=== PATIENT | female | born 1950 | race Caucasian/White ===

== ENCOUNTER 2016-10-11 14:12 | Emergency (ER) | payer MEDICARE, MEDICAID ==
[~2016-10-11] VITALS: Ht 154.9 cm; Wt 71.2 kg
[2016-10-11] MEDS ORDERED: DULA0.75 SQ (15:05)
[2016-10-11] MEDS ORDERED: SPIR25TA4 PO (15:05)
[2016-10-11] MEDS ORDERED: ROSU10TA25 PO (15:05)
[2016-10-11] MEDS ORDERED: OLME1TAB3 PO (15:05)
[2016-10-11] MEDS ORDERED: DICL100G3 TP (15:05)
[2016-10-11] MEDS ORDERED: ASPI81TA31 PO (15:05)
[2016-10-11] MEDS ORDERED: NALT50TA PO ×2 (15:05)
[2016-10-11] MEDS ORDERED: FLUT1BLS IH (15:05)
[2016-10-11] MEDS ORDERED: SITA1TAB2 PO (15:05)
[2016-10-11] MEDS ORDERED: LEVO50TA8 PO (15:05)
[2016-10-11] MEDS ORDERED: ICOS1CAP PO (15:05)
[2016-10-11] MEDS ORDERED: KETOROLAC TROMETHAMINE 15 MG INJ IV ONE (15:15)
[2016-10-11] MEDS ORDERED: IV NORMAL SALINE 1000 ML BAG IV ONE (15:15)
[2016-10-11] MEDS ORDERED: KETOROLAC TROMETHAMINE 15 MG INJ ONE (15:26)
[2016-10-11 15:29] LABS: BASOPHILS % (AUTO) 0.5 % (0.0-2.0); EOSINOPHILS # (AUTO) 0.1 K/uL (0.0-0.7); EOSINOPHILS % (AUTO) 0.9 % (0.0-7.0); LYMPHOCYTES # (AUTO) 2.1 K/uL (20.0-40.0); LYMPHOCYTES % (AUTO) 23.6 % (20.5-51.5); MEAN CORPUSCULAR HEMOGLOBIN 29.8 UUG (27.0-31.0); MEAN CORPUSCULAR HGB CONC 35 g/dL (32.0-37.0); MEAN CORPUSCULAR VOLUME 85.4 FL (81.0-99.0); MONOCYTES # (AUTO) 0.5 K/uL (2.0-10.0); MONOCYTES % (AUTO) 5.7 % (0.0-11.0); NEUTROPHILS # (AUTO) 6.1 K/uL (1.8-8.9); NEUTROPHILS % (AUTO) 69.3 % (38.5-71.5); PLATELET COUNT (AUTO) 295 K/UL (150-450); RED BLOOD CELL COUNT(AUTO) 4.69 MIL/UL (4.2-5.4); RED CELL DISTRIBUTION WIDTH 12.4 % (11.5-14.5); WHITE BLOOD COUNT (AUTO) 8.8 K/UL (4.0-11.2)
[2016-10-11 15:33] LABS: *BILIRUBIN,URIN NEGATIVE (NEGATIVE); *BLOOD, URINE Trace-intact (NEGATIVE); *COLOR,URINE YELLOW (YELLOW); *KETONES,URINE NEGATIVE (NEGATIVE); *PROTEIN,URINE NEGATIVE (NEGATIVE); *UROBILINOGEN,URINE 0.2 E.U./dl (NORMAL); LEUKOCYTE ESTERASE ,URINE NEGATIVE (NEGATIVE); NITRITE, URINE NEGATIVE (NEGATIVE); UGLUCOSE NEGATIVE (NEGATIVE)
[2016-10-11 15:41] LABS: CREATININE 0.9 mg/dL (0.6-1.3); POTASSIUM 3.8 mmol/L (3.5-5.1)
[2016-10-11 15:46] LABS: *CLARITY,URINE SLIGHTLY HAZY (CLEAR); BACTERIA,URINE FEW /HPF (NONE SEEN); SQUAMOUS EPITHELIAL CELL,UR MODERATE /HPF (NONE SEEN); WBC,URINE 0-3 /HPF (0-3)
[2016-10-11 15:46] LABS: ALBUMIN 4.2 g/dL (3.4-5.0); BILIRUBIN,DIRECT 0.1 mg/dL (0.0-0.2); BILIRUBIN,TOTAL 0.5 mg/dL (0.2-1.0); TOTAL PROTEIN, SERUM 8.1 g/dL (6.4-8.2)
[2016-10-11] MEDS ORDERED: CLONIDINE HCL 0.1 MG TABLET PO ONE (17:00)
--- NOTE | 2016-10-11 17:16 | NUR ---
Patient discharged to home in stable conditon. Written and verbal after care instructions given. Patient verbalizes understanding of instructions.pt walks in steady gait, accompanied by daughter. pt refused being wheelchaired to the car.
[2016-10-11 17:17] VITALS: BP 171/99
[2016-10-11] MEDS ORDERED: CLONIDINE HCL 0.1 MG TABLET ONE (17:18)
== END 2016-10-11 17:18 | disposition home or self-care (01) ==
LOC: ER 14:12
DX: M51.27 Other intervertebral disc displacement, lumbosacral region (principal); E11.9 Type 2 diabetes mellitus without complications; I10 Essential (primary) hypertension; E78.5 Hyperlipidemia, unspecified; E03.9 Hypothyroidism, unspecified; E66.9 Obesity, unspecified; Z79.82 Long term (current) use of aspirin
CPT/HCPCS: 36415; 71010; 72131; 72170; 73551; 80048; 80076; 81001; 84484; 85025; 85379; 85651; 85730; 96361; 96374; 99285; A4663; J1885; J7030; 70030-TC; J7040

== ENCOUNTER 2017-02-08 23:17 | Emergency (ER) | payer MEDICARE, MEDICAID ==
[~2017-02-08] VITALS: Ht 162.6 cm; Wt 77.1 kg
[~2017-02-08 23:17] MED LIST: ASPI81TA31 PO; DICL100G16 TP; DULA0.75 SQ; FLUT1BLS IH; ICOS1CAP PO; LEVO50TA8 PO; NALT50TA PO; OLME1TAB22 PO; ROSU10TA25 PO; SITA1TAB2 PO; SPIR25TA4 PO
[2017-02-09] MEDS ORDERED: SILVER SULFADIAZINE 1% CREAM 25 GM TUBE TP ONE ×2 (00:12)
--- NOTE | 2017-02-09 00:22 | NUR ---
Pt stable for discharge per Dr. Mesa. Pt given ACI. Pt verbalized understanding fo dc instructions. Pt ambulated out of er with steady gait and ride home
[2017-02-09 00:24] VITALS: BP 166/89
== END 2017-02-09 00:25 | disposition home or self-care (01) ==
LOC: ER 23:21
DX: T23.271A Burn of second degree of right wrist, initial encounter (principal); S20.219A Contusion of unspecified front wall of thorax, initial encounter; I10 Essential (primary) hypertension; E78.5 Hyperlipidemia, unspecified; E11.9 Type 2 diabetes mellitus without complications; E03.9 Hypothyroidism, unspecified; Z79.82 Long term (current) use of aspirin; V89.2XXA Person injured in unspecified motor-vehicle accident, traffic, initial encounter; Y93.89 Activity, other specified; Y92.413 State road as the place of occurrence of the external cause; Y99.9 Unspecified external cause status
CPT/HCPCS: 16020; 71010; A4663

== ENCOUNTER 2017-07-15 11:48 | Inpatient (IN) | payer MEDICARE, MEDICAID ==
[~2017-07-15] VITALS: Ht 162.6 cm; Wt 79.4 kg
[~2017-07-15 11:48] MED LIST changes: -ROSU10TA25 PO; +ROSU10TA27 PO
[2017-07-15] MEDS ORDERED: ASPIRIN 81 MG TAB.CHEW PO ONE (12:00)
[2017-07-15 12:17] LABS: BASOPHILS % (AUTO) 0.3 % (0.0-2.0); EOSINOPHILS % (AUTO) 0.4 % (0.0-7.0); HEMATOCRIT 41.6 % (31.2-41.9); HEMOGLOBIN 13.9 g/dL (10.9-14.3); LYMPHOCYTES # (AUTO) 1.7 K/uL (20.0-40.0); LYMPHOCYTES % (AUTO) 23.4 % (20.5-51.5); MEAN CORPUSCULAR HEMOGLOBIN 28.5 uug (24.7-32.8); MEAN CORPUSCULAR HGB CONC 33 g/dL (32.3-35.6); MEAN CORPUSCULAR VOLUME 85.2 fL (75.5-95.3); MONOCYTES # (AUTO) 0.4 K/uL (2.0-10.0); MONOCYTES % (AUTO) 5.7 % (0.0-11.0); NEUTROPHILS # (AUTO) 5.1 K/uL (1.8-8.9); NEUTROPHILS % (AUTO) 70.2 % (38.5-71.5); PLATELET COUNT (AUTO) 270 K/uL (179-408); RED BLOOD CELL COUNT(AUTO) 4.88 MIL/uL (3.63-4.92); WHITE BLOOD COUNT (AUTO) 7.3 K/uL (3.8-11.8)
[2017-07-15] MEDS ORDERED: ASPIRIN 81 MG TAB.CHEW ONE (12:21)
[2017-07-15 12:26] LABS: CREATININE 0.9 mg/dL (0.6-1.3); POTASSIUM 3.8 mmol/L (3.5-5.1)
--- NOTE | 2017-07-15 13:15 | NUR ---
pt admitted to tele by dr. dorinda man. transfer to floor pending on bed availability
--- NOTE | 2017-07-15 13:24 | NUR ---
[facility] provided for pt. pt daughter at bedside helping the pt.
[2017-07-15] MEDS ORDERED: ESOM40CA PO (14:18)
[2017-07-15] MEDS ORDERED: CYCL5TAB PO (14:18)
[2017-07-15] MEDS ORDERED: LORA1TAB PO (14:18)
[2017-07-15] MEDS ORDERED: CLON0.1T PO (14:18)
[2017-07-15] MEDS ORDERED: LORAZEPAM 1 MG TABLET PO PRN (15:45)
--- NOTE | 2017-07-15 15:54 | NUR ---
PT TRANSFERED TO FLOOR IN STABLE CONDITION.
[2017-07-15] MEDS ORDERED: MAGNESIUM HYDROXIDE 30 ML LIQUID UDC PO PRN (16:00)
[2017-07-15] MEDS ORDERED: Z GUARD REMEDY PASTE 57 GM TUBE TOP PRN (16:00)
[2017-07-15] MEDS ORDERED: NITROGLYCERIN 0.4 MG/TAB BOTTLE SL PRN (16:00)
[2017-07-15] MEDS ORDERED: DEXTROSE 50% 50 ML DISP.SYRIN IV PRN (16:00)
[2017-07-15] MEDS ORDERED: ACETAMINOPHEN 325 MG TABLET PO PRN (16:00)
[2017-07-15] MEDS ORDERED: INSULIN REGULAR, HUMAN 300 UNIT/3 ML VIAL SQ PRN (16:00)
[2017-07-15] MEDS ORDERED: MORPHINE SULFATE 2 MG/1 ML DISP.SYRIN IV PRN (16:00)
[2017-07-15] MEDS ORDERED: HYDROCODONE/APAP 5-325MG TABLET PO PRN (16:00)
[2017-07-15] MEDS ORDERED: ONDANSETRON 4 MG/2 ML VIAL IV PRN (16:00)
--- NOTE | 2017-07-15 16:00 | NUR ---
PT BROUGHT ON TO UNIT ON [facility]. PT CALM, NO SIGNS OF DISTRESS, TELE PT. IV INTACT. CONTINUE TO MONITOR.
[2017-07-15 16:10] VITALS: BP 152/88
[2017-07-15] MEDS ORDERED: MORPHINE SULFATE 4 MG/1 ML DISP.SYRIN IV PRN (16:15)
[2017-07-15] MEDS: CLONIDINE HCL 0.1 MG TABLET PO SCH (17:00)
[2017-07-15] MEDS ORDERED: SITAGLIPTIN PHOSPHATE 50 MG TABLET PO SCH (17:00)
[2017-07-15] MEDS: BLOOD SUGAR DIAGNOSTIC 1 EACH STRIP VI SCH ×2 (17:27→21:14)
[2017-07-15] MEDS: METFORMIN HCL 500 MG TABLET PO SCH ×2 (17:28→18:14)
[2017-07-15] MEDS ORDERED: SPIRONOLACTONE 25 MG TABLET PO SCH (18:00)
[2017-07-15] MEDS ORDERED: FLUTICASONE/VILANTEROL 1 EACH BLST.W.DEV IH SCH (18:00)
--- NOTE | 2017-07-15 18:44 | NUR ---
PT IN BED RESTING WITH NO SIGNS OF RESPIRTORY DISTRESS, CALM ,COOPERATIVE, AOX4, CAN WALK, STEADY GAIT. NO CHEST PAIN AT THIS TIME. CONTINUE TO MONITOR.
[2017-07-15 20:00] VITALS: BP 143/90
[2017-07-15] MEDS ORDERED: ATORVASTATIN 20 MG TABLET PO SCH (21:00)
[2017-07-15 23:01] VITALS: BP 135/76
[2017-07-16 04:00] VITALS: BP 134/78
--- NOTE | 2017-07-16 06:00 | NUR ---
at bedside during the night came to visit her . am medication given tolerated with water .f/s done and no coverage needs 125.patient aaox4,maex4. denies pain .had EKG done last night NSR. SLEPT MOST OF THE NIGHT .
[2017-07-16 06:27] LABS: BASOPHILS % (AUTO) 0.6 % (0.0-2.0); EOSINOPHILS # (AUTO) 0.1 K/uL (0.0-0.7); EOSINOPHILS % (AUTO) 1.9 % (0.0-7.0); HEMATOCRIT 37.8 % (31.2-41.9); HEMOGLOBIN 12.8 g/dL (10.9-14.3); LYMPHOCYTES # (AUTO) 2.2 K/uL (20.0-40.0); LYMPHOCYTES % (AUTO) 34.1 % (20.5-51.5); MEAN CORPUSCULAR HEMOGLOBIN 28.9 uug (24.7-32.8); MEAN CORPUSCULAR HGB CONC 34 g/dL (32.3-35.6); MEAN CORPUSCULAR VOLUME 85.6 fL (75.5-95.3); MONOCYTES # (AUTO) 0.5 K/uL (2.0-10.0); MONOCYTES % (AUTO) 7.4 % (0.0-11.0); NEUTROPHILS # (AUTO) 3.6 K/uL (1.8-8.9); PLATELET COUNT (AUTO) 271 K/uL (179-408); RED BLOOD CELL COUNT(AUTO) 4.42 MIL/uL (3.63-4.92); WHITE BLOOD COUNT (AUTO) 6.5 K/uL (3.8-11.8)
[2017-07-16] MEDS: BLOOD SUGAR DIAGNOSTIC 1 EACH STRIP VI SCH ×2 (06:41→12:28)
[2017-07-16 06:49] LABS: THYROID STIMULATING HORMONE 4.299 mIU/mL (0.358-3.740)
[2017-07-16 06:51] LABS: CREATININE 0.9 mg/dL (0.6-1.3); MAGNESIUM 1.6 mg/dL (1.8-2.4); PHOSPHOROUS 3.8 mg/dL (2.5-4.9); POTASSIUM 3.7 mmol/L (3.5-5.1)
[2017-07-16] MEDS ORDERED: LEVOTHYROXINE SODIUM 50 MCG TABLET PO SCH (07:00)
--- NOTE | 2017-07-16 07:00 | NUR ---
RECEIVED REPORT FROM AIR ANALYST NURSE, PATIENT AWAKE, IN BED, NO EVIDENCE OF DISTRESS NOTED AT THIS TIME, BED IN LOW POSITION SIDE RAILS UP X2.
[2017-07-16] MEDS: CLONIDINE HCL 0.1 MG TABLET PO SCH (08:59)
[2017-07-16] MEDS: METFORMIN HCL 500 MG TABLET PO SCH (08:59)
[2017-07-16] MEDS ORDERED: LINAGLIPTIN 5 MG TABLET PO SCH (09:00)
[2017-07-16] MEDS ORDERED: CYCLOBENZAPRINE HCL 10 MG TABLET PO SCH (09:00)
[2017-07-16] MEDS ORDERED: ASPIRIN 81 MG TAB.CHEW PO SCH (09:00)
[2017-07-16] MEDS ORDERED: LOSARTAN POTASSIUM 50 MG TABLET PO SCH (09:00)
--- NOTE | 2017-07-16 11:00 | NUR ---
ECHOCARDIOGRAM COMPLETED, AND ULTRASOUND COMPLETED. DR. RIVERA STATED THAT PATIENT CAN BE DISCHARGED AFTER LUNCH, AND WILL FOLLOWUP WITH A CARDIAC STRESS TEST IN DR. AVILA'S OFFICE ON WEDNESDAY.
[2017-07-16 11:07] VITALS: BP 146/62
--- NOTE | 2017-07-16 13:25 | NUR ---
PATIENT EDUCATION PROVIDED, IV REMOVED, AND INQUIRED ABOUT FLU AND PNEUMONIA SHOT WHICH PATIENT DECLINED. CURRENTLY THERE IS NO EVIDENCE OF DISTRESS, AND PATIENT IS BEING PICKED UP BY DAUGHTER AND SISTER TO BE TAKEN HOME. ADVISED PATIENT THAT SHE SHOULD RETURN TO ER IF SHE HAS CONTINUED CHEST PAIN OR SHORTNESS OF BREATH.
[2017-07-16] MEDS ORDERED: MAGNESIUM OXIDE 400 MG TABLET PO ONE (14:00)
== END 2017-07-16 13:30 | disposition home or self-care (01) | DRG 392 ==
LOC: ER 11:48 → TELE 15:51
DX: K21.9 Gastro-esophageal reflux disease without esophagitis (principal); E03.9 Hypothyroidism, unspecified; E78.5 Hyperlipidemia, unspecified; Z79.82 Long term (current) use of aspirin; Z79.899 Other long term (current) drug therapy; E66.9 Obesity, unspecified; Z68.30 Body mass index [BMI] 30.0-30.9, adult; E11.9 Type 2 diabetes mellitus without complications; I10 Essential (primary) hypertension
CPT/HCPCS: 36415; 70030-TC; 71045; 76700; 83690; 83735; 84100; 84443; 85025; 85730; 93005; 93307; A4663; J1815

== ENCOUNTER 2023-05-19 13:42 | Emergency (ER) | payer MEDICARE, OTHER ==
[~2023-05-19] VITALS: Ht 162.6 cm; Wt 79.4 kg
[~2023-05-19 13:42] MED LIST changes: +CLON0.1T PO; +CYCL5TAB PO; -DULA0.75 SQ; +ESOM40CA PO; +LORA1TAB PO; -ROSU10TA27 PO; +ROSU10TA29 PO; -SPIR25TA4 PO; +SPIR25TA6 PO
[2023-05-19] MEDS ORDERED: SITA1TAB6 PO (13:55)
[2023-05-19] MEDS ORDERED: ROSU40TA PO (13:55)
[2023-05-19] MEDS ORDERED: OMEP1CAP25 PO (13:55)
[2023-05-19] MEDS ORDERED: DULA0.75 SQ (13:55)
[2023-05-19] MEDS ORDERED: CARV12.52 PO (13:55)
[2023-05-19] MEDS ORDERED: OLME1TAB88 PO (13:55)
[2023-05-19] MEDS ORDERED: IV NORMAL SALINE 1000 ML BAG IV ONE (14:30)
[2023-05-19] MEDS ORDERED: CLONIDINE HCL 0.1 MG TABLET PO ONE (14:30)
[2023-05-19] MEDS ORDERED: CLONIDINE HCL 0.1 MG TABLET ONE (14:48)
[2023-05-19 14:57] LABS: BASOPHILS % (AUTO) 0.4 % (0.0-2.0); EOSINOPHILS % (AUTO) 0.4 % (0.0-7.0); HEMATOCRIT 34.4 % (31.2-41.9); HEMOGLOBIN 11.8 g/dL (10.9-14.3); LYMPHOCYTES # (AUTO) 1.4 K/uL (0.8-4.8); MEAN CORPUSCULAR HEMOGLOBIN 29.1 uug (24.7-32.8); MEAN CORPUSCULAR HGB CONC 34 g/dL (32.3-35.6); MONOCYTES # (AUTO) 0.4 K/uL (0.1-1.30); MONOCYTES % (AUTO) 6.9 % (0.0-11.0); NEUTROPHILS # (AUTO) 3.9 K/uL (1.8-8.9); NEUTROPHILS % (AUTO) 67.3 % (38.5-71.5); PLATELET COUNT (AUTO) 336 K/uL (179-408); RED BLOOD CELL COUNT(AUTO) 4.05 MIL/uL (3.63-4.92); RED CELL DISTRIBUTION WIDTH 13.7 % (12.3-17.7); WHITE BLOOD COUNT (AUTO) 5.8 K/uL (3.8-11.8)
[2023-05-19 15:01] LABS: DIFFERENTIAL COMMENT 1
[2023-05-19 15:06] LABS: CALCIUM 9.5 mg/dL (8.5-10.1); CARBON DIOXIDE 25 mmol/L (21-32); CHLORIDE 96 mmol/L (98-107); GLUCOSE 128 mg/dL (74-106); POTASSIUM 3.6 mmol/L (3.5-5.1); SODIUM SERUM 134 mmol/L (136-145); UREA NITROGEN, BLOOD 20 mg/dL (7-18)
[2023-05-19 15:18] LABS: ALANINE AMINOTRANSFERASE 24 U/L (14-59); ALBUMIN 3.9 g/dL (3.4-5.0); ALKALINE PHOSPHATASE 51 U/L (50-136); ASPARTATE AMINOTRANSFERASE 20 U/L (15-37); BILIRUBIN,DIRECT 0.2 mg/dL (0.0-0.2); BILIRUBIN,TOTAL 0.7 mg/dL (0.2-1.0); NT-PRO BNP 68 pg/mL (0-125); TOTAL PROTEIN, SERUM 7.2 g/dL (6.4-8.2)
[2023-05-19] MEDS ORDERED: MAGNESIUM SULFATE/D5W 100 ML ONE ×3 (15:57→17:55)
[2023-05-19] MEDS: MAGNESIUM SULFATE/D5W 100 ML IV SCH ×3 (16:07→18:11)
[2023-05-19 16:08] LABS: *BILIRUBIN,URIN NEGATIVE (NEGATIVE); *BLOOD, URINE NEGATIVE (NEGATIVE); *CLARITY,URINE CLEAR (CLEAR); *COLOR,URINE YELLOW (YELLOW); *KETONES,URINE NEGATIVE (NEGATIVE); *PROTEIN,URINE NEGATIVE (NEGATIVE); *UROBILINOGEN,URINE 0.2 E.U./dl (NORMAL); LEUKOCYTE ESTERASE ,URINE NEGATIVE (NEGATIVE); NITRITE, URINE NEGATIVE (NEGATIVE); UGLUCOSE NEGATIVE (NEGATIVE)
[2023-05-19] MEDS ORDERED: CLON0.1T PO (16:51)
[2023-05-19 20:04] VITALS: BP 145/79; TEMP 98.8; O2SAT 100
== END 2023-05-19 20:04 | disposition home or self-care (01) ==
LOC: ER 13:42
DX: R29.0 Tetany (principal); E86.0 Dehydration; G93.31 Postviral fatigue syndrome; I10 Essential (primary) hypertension; E78.5 Hyperlipidemia, unspecified; E03.9 Hypothyroidism, unspecified; E66.9 Obesity, unspecified; Z79.899 Other long term (current) drug therapy; Z79.82 Long term (current) use of aspirin
CPT/HCPCS: 36415; 71045; 83605; 83735; 84484; 85025; 85730; 87040; 93005; A4606; A4663; J3475; J7040